=== PATIENT | female | born 1955 | race Hispanic/Latino ===

== ENCOUNTER 2022-04-23 15:33 | Emergency (ER) | payer BC ==
[~2022-04-23 15:33] MED LIST: Iopamidol 370 76% 100 ML VIAL ONE
[2022-04-23 16:21] LABS: #Eosinphils 0.1 10x3/uL (0.0-0.5); #Monocytes 0.6 10x3/uL (0.0-1.1); #Neutrophils 5.6 10x3/uL (1.5-8.4); %Basophils 0.4 % (0.0-2.0); %Eosinophils 1.1 % (0.0-6.0); %Lymphocytes 21.1 % (18.0-47.0); %Monocytes 7.8 % (0.0-10.0); %Neutrophils 69.5 % (40.0-75.0); Hemoglobin 13.1 g/dL (12.0-15.5); Mean Corpuscular HGB CONC 34.1 g/dL (32.0-36.0); Mean Corpuscular Volume 90.8 fl (81.6-98.3); Mean Platelet Volume 9.2 fl (7.4-10.4); Platelet Count 270 10x3/uL (150-450); RBC Distribution Width 12.7 % (11.5-14.5); Red Blood Cell (RBC) Count 4.23 10x6/uL (3.90-5.03)
[2022-04-23 16:30] LABS: ALT (SGPT) 16 U/L (8-55); AST (SGOT) 17 U/L (5-34); Albumin 4.4 g/dL (3.4-4.8); Alkaline Phosphatase 68 U/L (40-110); Anion Gap 16 mmol/L (10-20); BUN (Urea Nitrogen) 15 mg/dL (9.8-20.1); Bilirubin, Total 0.4 mg/dL (0.2-1.2); Calc. Creatinine Clearance 0 mL/min (70-130); Calcium 9.3 mg/dL (7.8-10.44); Carbon Dioxide 26 mmol/L (23-31); Chloride 99 mmol/L (98-107); Estimated GFR 45; Glucose 115 mg/dL (80-115); Lipase 22 U/L (8-78); Potassium 3.5 mmol/L (3.5-5.1); Protein, Total 7.4 g/dL (5.8-8.1); Sodium 137 mmol/L (136-145)
[2022-04-23] MEDS ORDERED: Acetaminophen 500 MG TAB ONE (16:38)
[2022-04-23] MEDS ORDERED: Aspirin Chewable 81 MG TAB ONE (16:39)
[2022-04-23] MEDS ORDERED: Nitroglycerin 0.4 MG TAB 1 EACH ONE (16:39)
[2022-04-23 20:10] LABS: Troponin I Less than 0.010 ng/mL (< 0.028)
== END 2022-04-23 20:29 | disposition home or self-care (01) ==
LOC: CSHERS 15:33
DX: R07.89 Other chest pain (principal); E03.9 Hypothyroidism, unspecified; Z79.899 Other long term (current) drug therapy
CPT/HCPCS: 71275; 80053; 83690; 83880; 84484; 85025; 93005; Q9967